=== PATIENT | female | born 1990 | race African-American/Black ===

== ENCOUNTER 2018-08-10 14:43 | Emergency (ER) | payer SELFPAY ==
[~2018-08-10] VITALS: Ht 154.9 cm; Wt 68.2 kg
[2018-08-10] MEDS ORDERED: CYCLOBENZAPRINE HCL 10 MG TABLET PO ONE (16:15)
[2018-08-10] MEDS ORDERED: IBUPROFEN 800 MG TABLET PO ONE (16:15)
[2018-08-10 17:35] VITALS: BP 125/86
== END 2018-08-10 17:38 | disposition home or self-care (01) ==
LOC: EMS 14:44
DX: S29.012A Strain of muscle and tendon of back wall of thorax, initial encounter (principal); F12.90 Cannabis use, unspecified, uncomplicated; V42.5XXA Car driver injured in collision with two- or three-wheeled motor vehicle in traffic accident, initial encounter; Y93.89 Activity, other specified; Y92.89 Other specified places as the place of occurrence of the external cause; Y99.8 Other external cause status